=== PATIENT | female | born 1935 | race Caucasian/White ===

== ENCOUNTER 2021-04-13 19:38 | Inpatient (IN) | payer MEDICARE, OTHER ==
[2021-04-13] MEDS ORDERED: Sodium Chloride 0.9% 1,000 ML IV ONE (20:45)
[2021-04-13] MEDS ORDERED: Sodium Chloride 0.9% 10 ML SDV FLUSH ONE (21:32)
[2021-04-13] MEDS ORDERED: Iopamidol 755 Mg/ML 100 ML Bottle IVPUSH ONE (21:32)
[2021-04-13] MEDS ORDERED: Sodium Chloride 0.9% 100 ML IV SCH (21:45)
[2021-04-13] MEDS ORDERED: cefTRIAXone 1 GM in Sodium Chloride 0.9% 100 ML IV ONE (22:42)
[2021-04-13] MEDS ORDERED: Azithromycin 500 MG in Sodium Chloride 0.9% 250 ML IV ONE (22:42)
[2021-04-13] MEDS ORDERED: OLANZapine 10 MG Vial IM ONE ×2 (23:16→23:39)
[2021-04-13] MEDS ORDERED: OLANZapine 10 MG Vial ONE (23:18)
[2021-04-14] MEDS ORDERED: QUEtiapine 25 MG Tab PO ONE (00:03)
[2021-04-14] MEDS ORDERED: LORazepam 2 MG/ML SDV ONE (00:22)
[2021-04-14] MEDS ORDERED: LORazepam 2 MG/ML SDV IVPUSH ONE (00:26)
[2021-04-14] MEDS ORDERED: Docusate Sodium 100 MG Cap PO PRN (11:39)
[2021-04-14] MEDS ORDERED: Acetaminophen 325 MG Tab PO PRN (11:39)
[2021-04-14] MEDS ORDERED: Azithromycin 500 MG in Sodium Chloride 0.9% 250 ML IV SCH (12:00)
[2021-04-14] MEDS ORDERED: cefTRIAXone 1 GM in Sodium Chloride 0.9% 100 ML IV SCH (12:00)
[2021-04-14] MEDS: Azithromycin 500 MG in Sodium Chloride 0.9% 250 ML IV SCH (21:00)
[2021-04-14] MEDS: cefTRIAXone 1 GM in Sodium Chloride 0.9% 100 ML IV SCH (22:13)
[2021-04-15] MEDS ORDERED: Potassium Chloride 20 MEQ Tab.ER PO ONE (08:15)
[2021-04-15] MEDS: Enoxaparin 30 MG/0.3 ML Syringe SUBCUT SCH (09:02)
[2021-04-15] MEDS ORDERED: Diclofenac Sodium 1% Gel 100 GM Tube TOP PRN (14:20)
[2021-04-15] MEDS ORDERED: Acetaminophen 325 MG Tab PO PRN (14:20)
[2021-04-15] MEDS ORDERED: Nitroglycerin 0.4 MG Tab.SL SL PRN (14:20)
[2021-04-15] MEDS ORDERED: Non-Formulary Medication 1 Each (Ubidecarenone 100 MG Capsule) PO SCH (14:30)
[2021-04-15] MEDS: Ascorbic Acid 500 MG Tab PO SCH (14:53)
[2021-04-15] MEDS: LORazepam 2 MG/ML SDV IV PRN ×2 (14:55→20:08)
[2021-04-15] MEDS: ARIPiprazole 5 MG Tab PO SCH (15:25)
[2021-04-15] MEDS: Fish Oil/Omega-3 Fatty Acids 1 Gm Cap PO SCH (15:26)
[2021-04-15] MEDS: Sertraline 50 MG Tab PO SCH (15:26)
[2021-04-15] MEDS: Donepezil 10 MG Tab PO SCH (20:10)
[2021-04-15] MEDS: Memantine 10 MG Tab PO SCH (20:10)
[2021-04-15] MEDS: Azithromycin 500 MG in Sodium Chloride 0.9% 250 ML IV SCH (21:25)
[2021-04-15] MEDS: cefTRIAXone 1 GM in Sodium Chloride 0.9% 100 ML IV SCH (22:35)
[2021-04-16] MEDS ORDERED: Pantoprazole 40 MG Tab.CR PO SCH (07:00)
[2021-04-16] MEDS ORDERED: Levothyroxine 112 MCG Tab PO SCH (07:00)
[2021-04-16] MEDS: Ascorbic Acid 500 MG Tab PO SCH (08:24)
[2021-04-16] MEDS: Sertraline 50 MG Tab PO SCH (08:24)
[2021-04-16] MEDS: Memantine 10 MG Tab PO SCH (08:25)
[2021-04-16] MEDS: Fish Oil/Omega-3 Fatty Acids 1 Gm Cap PO SCH (08:25)
[2021-04-16] MEDS: Donepezil 10 MG Tab PO SCH (08:26)
[2021-04-16] MEDS: ARIPiprazole 5 MG Tab PO SCH (08:26)
[2021-04-16] MEDS: Enoxaparin 30 MG/0.3 ML Syringe SUBCUT SCH (08:27)
[2021-04-16] MEDS ORDERED: amLODIPine 5 MG Tab PO SCH (09:00)
[2021-04-16] MEDS ORDERED: Saccharomyces Boulardii (Probiotic) 250 MG Cap PO SCH (09:00)
[2021-04-16] MEDS ORDERED: Ezetimibe 10 MG Tab PO SCH (09:00)
[2021-04-16] MEDS ORDERED: Furosemide 20 MG Tab PO SCH (09:00)
[2021-04-16] MEDS ORDERED: Ferrous Sulfate 324 MG Tab.EC PO SCH (09:00)
[2021-04-16] MEDS ORDERED: Isosorbide Mononitrate 30 MG Tab.ER PO SCH (09:00)
[2021-04-16] MEDS ORDERED: Cholecalciferol (Vitamin D3) 25 MCG Tab PO SCH (09:00)
[2021-04-16] MEDS ORDERED: Multivitamin Tab PO SCH (09:00)
[2021-04-16] MEDS ORDERED: Potassium Chloride 10 MEQ Tab.ER PO SCH (09:00)
== END 2021-04-16 14:33 | DRG 194 ==
LOC: JD.ED 19:38 → JD.MS 04-14 12:07
PROVIDERS: ADMIT Internal Medicine; ATTEND Internal Medicine
DX: J15.9 Unspecified bacterial pneumonia (principal); F02.81 Dementia in other diseases classified elsewhere, unspecified severity, with behavioral disturbance; R91.8 Other nonspecific abnormal finding of lung field; Z66 Do not resuscitate; H91.90 Unspecified hearing loss, unspecified ear; I12.9 Hypertensive chronic kidney disease with stage 1 through stage 4 chronic kidney disease, or unspecified chronic kidney disease; H54.7 Unspecified visual loss; E78.00 Pure hypercholesterolemia, unspecified; N18.30 Chronic kidney disease, stage 3 unspecified; F41.9 Anxiety disorder, unspecified; F32.A Depression, unspecified; E03.9 Hypothyroidism, unspecified; Z88.8 Allergy status to other drugs, medicaments and biological substances; Z79.899 Other long term (current) drug therapy; Z79.890 Hormone replacement therapy; Z20.822 Contact with and (suspected) exposure to COVID-19; G30.9 Alzheimer's disease, unspecified; I11.0 Hypertensive heart disease with heart failure
CPT/HCPCS: 36415; 71045; 71045-26; 71275; 71275-26; 80053; 83605; 83735; 84484; 85025; 85379; 85610; 87040; 87641; 93005; 93010; 96365; 96367; 96372; 96375; 97116-GP; 97161-GP; 97530-GP; 99285; 99285-25; A9270-GY; J0456; J0696; J1650; J2060; J3490; J7030; J7050; Q9967; U0002

== ENCOUNTER 2022-02-07 11:13 | Emergency (ER) | payer MEDICARE ==
[2022-02-07] MEDS ORDERED: Acetaminophen 325 MG Tab PO ONE (11:38)
== END 2022-02-07 14:00 | disposition home or self-care (01) ==
LOC: JD.ED 11:13
DX: S42.032A Displaced fracture of lateral end of left clavicle, initial encounter for closed fracture (principal); S51.012A Laceration without foreign body of left elbow, initial encounter; I10 Essential (primary) hypertension; E03.9 Hypothyroidism, unspecified; F03.90 Unspecified dementia, unspecified severity, without behavioral disturbance, psychotic disturbance, mood disturbance, and anxiety; Z88.8 Allergy status to other drugs, medicaments and biological substances; Z79.899 Other long term (current) drug therapy; W18.30XA Fall on same level, unspecified, initial encounter
CPT/HCPCS: 73030; 73060; 73090; 99284; A9270